=== PATIENT | male | born 1995 | race Hispanic/Latino ===

== ENCOUNTER 2022-10-28 05:39 | Emergency (ER) | payer BC ==
[~2022-10-28] VITALS: Ht 175.3 cm; Wt 111.6 kg
[2022-10-28 05:44] VITALS: BP 145/85
[2022-10-28] MEDS ORDERED: CEPH500B PO (05:56)
[2022-10-28] MEDS ORDERED: IBUP-1493 PO (05:56)
[2022-10-28] MEDS ORDERED: DIPH,PERTUSS(ACELL),TET VAC/PF 0.5 ML VIAL IM ONE (06:00)
[2022-10-28] MEDS ORDERED: TETANUS/DIPHTHERIA TOXOID [ADULT] 0.5 ML VIAL IM ONE ×2 (06:05→06:30)
== END 2022-10-28 06:20 | disposition home or self-care (01) ==
LOC: EDH 05:39 → EDBD 05:39 → EDH 06:20
DX: L05.91 Pilonidal cyst without abscess (principal)
CPT/HCPCS: 90471; 90714; 90715